=== PATIENT | male | born 1990 | race Two or more races ===

== ENCOUNTER 2019-05-29 20:31 | Emergency (ER) | payer MEDICAID, OTHER ==
[~2019-05-29] VITALS: Ht 172.7 cm; Wt 74.8 kg
[2019-05-29 20:32] VITALS: BP 120/76
--- NOTE | 2019-05-29 20:35 | NUR ---
ED Nurse Note: Patient walked in to ER c/o SOB, cough. Stated went to [facility] yestrday, was prescribed medications, did not help. No fever, no N/V. Patient presented shaky, stated stop drinking alcohol 5 days ago.
[2019-05-29] MEDS ORDERED: PROMETHAZINE-D118 ML ORAL (20:41)
--- NOTE | 2019-05-29 20:48 | NUR ---
ED Nurse Note: Pt cleared by health care Provider for discharge. DC instructions/prescription was given and explained to pt and verbalized understanding of teachings. All medical deviecs such as ID band removed. Pt is AAO x4, ambulatory and left with all personal belongings.
[2019-05-29 20:49] VITALS: BP 120/76
--- NOTE | 2019-05-30 22:38 | Emergency Room Report ---
History of Present Illness General Chief Complaint: Upper Respiratory Illness Source: Patient Present Illness HPI 28-year-old male presents to ED for cough congestion. Cough is dry. Denies fevers or chills. States he went to [place] yesterday and was prescribed Tylenol. States his symptoms persist. Symptom started a few days ago. Denies chest pain or shortness of breath. Denies recent travel. No other aggravating relieving factors. Denies any other associated symptoms Allergies: Coded Allergies: No Known Allergies (Unverified , 05/29/19) COVID-19 Screening Contact w/high risk pt: No Recent Travel to affected area: No Experienced COVID-19 symptoms?: Yes COVID-19 symptoms experienced: Shortness of Breath, Cough Patient History Past Medical History: none Past Surgical History: none Pertinent Family History: none Social History: Denies: smoking, alcohol use, drug use Immunizations: UTD Reviewed Nursing Documentation: PMH: Agreed; PSxH: Agreed Nursing Documentation-PMH Past Medical History: No Stated History Review of Systems All Other Systems: negative except mentioned in HPI Physical Exam Vital Signs Date Time Temp Pulse Resp B/P (MAP) Pulse Ox O2 Delivery O2 Flow Rate FiO2 05/29/19 20:19 98.4 89 20 120/76 (91) 96 Room Air Sp02 EP Interpretation: reviewed, normal General Appearance: no apparent distress, alert, GCS 15, non-toxic Head: normocephalic, atraumatic Eyes: bilateral eye normal inspection, bilateral eye PERRL ENT: hearing grossly normal, normal pharynx, no angioedema, normal voice Neck: full range of motion, supple/symm/no masses Respiratory: chest non-tender, lungs clear, normal breath sounds, speaking full sentences Cardiovascular #1: regular rate, rhythm, no edema Cardiovascular #2: 2+ carotid (R), 2+ carotid (L), 2+ radial (R), 2+ radial (L) , 2+ dorsalis pedis (R), 2+ dorsalis pedis (L) Gastrointestinal: normal bowel sounds, non tender, soft, non-distended, no guarding, no rebound Rectal: deferred Genitourinary: normal inspection, no CVA tenderness Musculoskeletal: back normal, normal range of motion, gait/station normal, non- tender Neurologic: alert, motor strength/tone normal, oriented x3, sensory intact, responsive, speech normal Psychiatric: judgement/insight normal, memory normal, mood/affect normal, no suicidal/homicidal ideation Reflexes: 3+ bicep (R), 3+ bicep (L), 3+ tricep (R), 3+ tricep (L), 3+ knee (R) , 3+ knee (L) Lymphatic: no adenopathy Medical Decision Making Diagnostic Impression: Primary Impression: Upper respiratory infection Qualified Codes: J06.9 - Acute upper respiratory infection, unspecified ER Course Hospital Course 28-year-old male presents to ED complaining of cough Differential diagnoses include: URI, pharyngitis, otitis media, asthma Clinical course Patient placed in isolation tent. I wore full PPE. After initial history, physical exam reveals a male in no acute distress. Bilateral TM unremarkable. No pharyngeal erythema. No tonsillar exudates. No lymphadenopathy. lungs clear. abdomen soft. Clinical findings consistent with URI. Consideration for coronavirus. Afebrile , nontoxic-appearing. No shortness of breath. Vitals stable. Recommend patient stay home and self isolate. Will prescribe cough medication. I will provide referrals. Safe for discharge close outpatient follow-up Diagnosis - URI Stable and discharged home with Rx Promethazine. self-isolate for 14 days. Instructed to followup with PMD. Return to ED if symptoms recur or worsen Last Vital Signs Date Time Temp Pulse Resp B/P (MAP) Pulse Ox O2 Delivery O2 Flow Rate FiO2 05/29/19 20:49 98.4 89 20 120/76 96 Room Air Status: improved Disposition: HOME, SELF-CARE Condition: Stable Scripts D-Methorphan Hb/Prometh Hcl* (PROMETHAZINE-DM SYRUP*) 118 Ml Syrup 5 ML ORAL Q6H PRN for For Cough, #118 ML 0 Refills Prov: Cristian Kennedy MD 05/29/19 Referrals: [facility]ERR[facility] (PCP) [facility] Patient Instructions: Upper Respiratory Infection, Adult Additional Instructions: you may have coronavirus. you need to go home and self-isolate for 14 days. rest and drink plenty of fluids. Cristian Kennedy MD May 30, 2019 22:38
== END 2019-05-29 20:48 | disposition home or self-care (01) ==
LOC: EDBD 20:31 → EMR 20:36
DX: J06.9 Acute upper respiratory infection, unspecified (principal)
CPT/HCPCS: 99282